=== PATIENT | male | born 1950 | race Caucasian/White ===

== ENCOUNTER 2016-04-18 11:51 | Observation (INO) | payer MEDICARE, OTHER ==
[~2016-04-18] VITALS: Ht 177.8 cm; Wt 80.2 kg
[2016-04-18 11:55] VITALS: BP 125/75; PULSE 65; RESP 16; TEMP 98.2; O2SAT 96
[2016-04-18] MEDS ORDERED: SODIUM CHLORIDE 0.9% FLUSH 5 ML FLUSH IVF PRN (12:00)
[2016-04-18] MEDS ORDERED: LORazepam 2 MG/ML VIAL IVP ONE (12:00)
[2016-04-18 12:01] VITALS: O2SAT 96
[2016-04-18] MEDS ORDERED: LISI-515 PO (12:02)
[2016-04-18 12:34] LABS: BASOPHIL % 0.3 % (0.0-2.0); EOSINOPHIL % 0.3 % (0.0-4.0); HEMATOCRIT 40.9 % (39.0-51.0); HEMO FLAGS DIFF FINAL; LYMPH % 10.7 % (9.0-44.0); LYMPHOCYTE # 0.8 TH/MM3 (1.0-4.8); MEAN CELL VOLUME 97.5 FL (80.0-100.0); MEAN CORPUSCULAR HEMOGLOBIN 33.4 PG (27.0-34.0); MEAN CORPUSCULAR HGB CONC 34.3 % (32.0-36.0); MONO % 4.9 % (0.0-8.0); NEUT % 83.8 % (16.0-70.0); PLATELET COUNT 170 TH/MM3 (150-450); RED BLOOD COUNT 4.19 MIL/MM3 (4.50-5.90); RED CELL DISTRIBUTION WIDTH 13.9 % (11.6-17.2); WHITE BLOOD COUNT 7.1 TH/MM3 (4.0-11.0)
--- NOTE | 2016-04-18 12:39 | PD ---
HPI Chief Complaint: Alcohol/Drug Intoxication Time Seen by Provider: 11:56 Travel History International Travel<30 days: No Contact w/Intl Traveler<30days: No Traveled to known affect area: No History of Present Illness HPI This is a 65-year-old gentleman with history of alcoholism, who presents today with complaints of concerns for DTs and possible seizures. The patient reports that he was clean for a year and 10 days ago he started drinking a fifth of vodka daily. The patient states that he has been alcohol free for 48 hours and now is very tremulous and feels as though he may be impending DTs. 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 He denies any seizures today and reports that he had been 30 years ago. There are no other complaints time of my examination. PFSH Past Medical History Cardiovascular Problems: Yes (HTN) Diminished Hearing: No Hypertension: Yes Seizures: Yes (ETOH INDUCED) Social History Alcohol Use: Yes (DAILY ) Tobacco Use: No Substance Use: No Allergies-Medications (Allergen,Severity, Reaction): Coded Allergies: No Known Allergies (Unverified , 04/18/16) Reported Meds & Prescriptions Reported Meds & Active Scripts Active Chlordiazepoxide (Chlordiazepoxide HCl) 25 Mg Cap 25 Mg PO TID PRN Reported Lisinopril 20 Mg Tab 20 Mg PO QID Review of Systems Except as stated in HPI: all other systems reviewed are Neg Eyes: Positive: Other (is reports seen bright lights with the tremors.), No: Pain HENT: No: Headaches, Lightheadedness Cardiovascular: No: Chest Pain or Discomfort, Palpitations Respiratory: No: Cough, Shortness of Breath Gastrointestinal: Positive: Nausea, Vomiting, No: Diarrhea, Abdominal Pain Genitourinary: No: Dysuria, Incontinence Musculoskeletal: No: Weakness, Pain Skin: Positive Other (multiple skin lesions secondary to prolonged sun abuse) Neurologic: Positive: Tremor, No: Change in Mentation, Incontinence, Seizures Physical Exam Narrative GENERAL: Well-developed well-nourished gentleman who appears to be tremulous SKIN: Warm and dry. She has multiple scaly skin lesions. These appear consistent with prolonged sun abuse. HEAD: Atraumatic. Normocephalic. EYES:No scleral icterus. No injection or drainage. ENT: No nasal bleeding or discharge. Mucous membranes pink and moist. NECK: Trachea midline. Supple CARDIOVASCULAR: Regular rate and rhythm. Rate in the 60s. No murmur appreciated. RESPIRATORY: No accessory muscle use. Clear to auscultation. Breath sounds equal bilaterally. GASTROINTESTINAL: Abdomen soft, non-tender, nondistended. No rebound or guarding. No fluid wave. MUSCULOSKELETAL: No obvious deformities. No clubbing. No cyanosis. No edema. NEUROLOGICAL: Awake and alert. No obvious cranial nerve deficits. Motor grossly within normal limits. Normal speech. Tremulous. Data Data Last Documented VS Vital Signs Date Time Temp Pulse Resp B/P Pulse Ox O2 Delivery O2 Flow Rate FiO2 04/18/16 15:18 68 26 174/68 95 Room Air 04/18/16 11:55 98.2 Orders Electrocardiogram (04/18/16 11:56) Complete Blood Count With Diff (04/18/16 11:56) Comprehensive Metabolic Panel (04/18/16 11:56) Chest, Single Ap (04/18/16 11:56) Iv Access Insert/Monitor (04/18/16 11:56) Ecg Monitoring (04/18/16 11:56) Oximetry (04/18/16 11:56) Lorazepam Inj (Ativan Inj) (04/18/16 12:00) Sodium Chloride 0.9% Flush (Ns Flush) (04/18/16 12:00) Drug Screen, Random Urine (04/18/16 11:56) Alcohol (Ethanol) (04/18/16 11:56) Thiamine (Vit B1) (Vitamin B1) (04/18/16 13:15) Folic Acid (Folate) (04/18/16 13:15) Multivitamin (Theragran) (04/18/16 13:15) Chlordiazepoxide (Librium) (04/18/16 15:00) Labs Laboratory Tests Test 04/18/16 12:05 White Blood Count 7.1 TH/MM3 Red Blood Count 4.19 MIL/MM3 Hemoglobin 14.0 GM/DL Hematocrit 40.9 % Mean Corpuscular Volume 97.5 FL Mean Corpuscular Hemoglobin 33.4 PG Mean Corpuscular Hemoglobin 34.3 % Concent Red Cell Distribution Width 13.9 % Platelet Count 170 TH/MM3 Mean Platelet Volume 7.7 FL Neutrophils (%) (Auto) 83.8 % Lymphocytes (%) (Auto) 10.7 % Monocytes (%) (Auto) 4.9 % Eosinophils (%) (Auto) 0.3 % Basophils (%) (Auto) 0.3 % Neutrophils # (Auto) 6.0 TH/MM3 Lymphocytes # (Auto) 0.8 TH/MM3 Monocytes # (Auto) 0.3 TH/MM3 Eosinophils # (Auto) 0.0 TH/MM3 Basophils # (Auto) 0.0 TH/MM3 CBC Comment DIFF FINAL Differential Comment Sodium Level 143 MEQ/L Potassium Level 3.9 MEQ/L Chloride Level 103 MEQ/L Carbon Dioxide Level 26.8 MEQ/L Anion Gap 13 MEQ/L Blood Urea Nitrogen 14 MG/DL Creatinine 1.03 MG/DL Estimat Glomerular Filtration 72 ML/MIN Rate Random Glucose 95 MG/DL Calcium Level 8.4 MG/DL Total Bilirubin 0.7 MG/DL Aspartate Amino Transf 83 U/L (AST/SGOT) Alanine Aminotransferase 51 U/L (ALT/SGPT) Alkaline Phosphatase 44 U/L Total Protein 7.4 GM/DL Albumin 4.2 GM/DL Ethyl Alcohol Level 42 MG/DL [facility] Medical Decision Making Medical Screen Exam Complete: Yes Emergency Medical Condition: Yes Differential Diagnosis Acute alcohol withdrawal versus DTs versus encephalopathy versus electrolyte abnormalities. Narrative Course 65-year-old gentleman who presents with early alcohol withdrawal symptoms. The patient has been on a 10 day alcohol binge. He's been drinking a fifth of vodka daily for 10 days. He states that he stop drinking 48 hours ago although his serum alcohol level is 0.042. He's been given 2 mg of Ativan and 25 mg of Librium. He is also been given a multivitamin, 1 mg of folate and 100 mg of thiamine. At this time he does not appear to be an acute withdrawals and I am comfortable with discharging him. The patient's will be given a prescription for Librium 25 mg 3 times daily 5 days. He is instructed this avoid alcohol. Case management has provided him with outpatient alcohol detox programs. He is instructed return of he develops any recurring symptoms. Diagnosis Primary Impression: Alcohol withdrawal syndrome Additional Instructions: Do not drink alcohol. Take Librium for withdrawal symptoms but please avoid alcohol. Follow up with outpatient alcohol detox program. Scripts Chlordiazepoxide 25 Mg Cap25 Mg PO TID PRN (Anxiety) #15 CAP Ref 0 Prov:Justino Pina MD 04/18/16 Disposition: 01 DISCHARGE HOME Condition: Stable Justino Pina MD Apr 18, 2016 12:39
[2016-04-18 12:53] LABS: ALT (GPT) 51 U/L (12-78); ANION GAP 13 MEQ/L (5-15); AST (GOT) 83 U/L (15-37); BICARBONATE 26.8 MEQ/L (21.0-32.0); BLOOD UREA NITROGEN 14 MG/DL (7-18); CHLORIDE 103 MEQ/L (98-107); GLOMERULAR FILTRATION RATE 72 ML/MIN (>89); POTASSIUM 3.9 MEQ/L (3.5-5.1); SODIUM (NA) 143 MEQ/L (136-145)
[2016-04-18 12:55] LABS: ALKALINE PHOSPHATASE 44 U/L (45-117); TOTAL BILIRUBIN ADULT 0.7 MG/DL (0.2-1.0)
[2016-04-18] MEDS ORDERED: FOLIC ACID 1 MG TAB PO ONE (13:15)
[2016-04-18] MEDS ORDERED: MULTIVITAMIN TAB PO ONE (13:15)
[2016-04-18] MEDS ORDERED: THIAMINE HCL 100 MG TAB PO ONE (13:15)
--- NOTE | 2016-04-18 13:26 | RADRPT ---
EXAM DATE/TIME: 04/18/2016 12:14 [place] COMPARISON: No previous studies available for comparison. INDICATIONS : Cough. MEDICAL HISTORY : None. SURGICAL HISTORY : None. ENCOUNTER: Initial ACUITY: 4 - 6 days PAIN SCORE: 3/10 LOCATION: Bilateral upper chest FINDINGS: A single view of the chest demonstrates the lungs to be symmetrically aerated without evidence of mas s, infiltrate or effusion. The cardiomediastinal contours are unremarkable. Osseous structures are intact. CONCLUSION: No evidence of acute cardiopulmonary disease. Sanchez Roy MD on April 18, 2016 at 13:24 Board Certified Radiologist. This report was verified electronically.
[2016-04-18 14:13] VITALS: BP 137/69; PULSE 68; RESP 16; O2SAT 95
[2016-04-18] MEDS ORDERED: chlordiazePOXIDE 25 MG CAP PO ONE (15:00)
[2016-04-18] MEDS ORDERED: CHLO25CA2 PO (15:07)
[2016-04-18 15:18] VITALS: BP 174/68; PULSE 68; RESP 26; O2SAT 95
[2016-04-18] MEDS ORDERED: LORazepam 2 MG TAB PO PRN (18:15)
[2016-04-18] MEDS ORDERED: LORazepam 2 MG/ML VIAL IV PUSH PRN ×4 (18:15)
[2016-04-18] MEDS ORDERED: LORazepam 1 MG TAB PO PRN (18:15)
[2016-04-18] MEDS ORDERED: FLUMAZENIL 0.5 MG/5 ML VIAL IV PUSH PRN (18:15)
[2016-04-18] MEDS ORDERED: chlordiazePOXIDE 25 MG CAP PO PRN (18:15)
[2016-04-18] MEDS ORDERED: THIAMINE INJ 100 MG in SODIUM CHLORIDE 0.9% INJ 100 ML IV ONE (18:15)
[2016-04-18 18:23] LABS: AMPHETAMINE, URINE NEG (NEG); BARBITURATES, URINE NEG (NEG); COCAINE, URINE NEG (NEG)
[2016-04-18 20:00] VITALS: BP 153/77; PULSE 69; RESP 19; TEMP 98.3; O2SAT 99
[2016-04-18] MEDS: chlordiazePOXIDE 25 MG CAP PO SCH (22:22)
--- NOTE | 2016-04-18 23:33 | HHI.HP ---
[facility] No Primary Care Physician Admission Diagnosis acute alcohol withdrawel syndrome. Diagnoses: Travel History International Travel<30 Days: No Contact w/Intl Traveler <30 Da: No Traveled to Known Affected Are: No History of Present Illness Patient seen this afternoon around 6 PM. 65-year-old male with a history of hypertension, chronic alcoholism, seizure many years ago after attempted alcohol cessation. Patient states he stopped drinking intentionally 2 days ago , began to experience progressively worsening tremors bilaterally, as well as hallucinations. He does not want to have a seizure.. He is given Librium in the ER, with improvement in tremors, however still with hallucinations, described as visual disturbances, seeing pictures that aren't there, however denies that they're floaters. He denies any headache, chest pain, shortness of breath, nausea, vomiting, fevers, chills Review of Systems performed and negative except for HPI and past medical history. Past Family Social History Past Medical History Seizure many years ago from alcohol withdrawal Chronic alcoholism. Patient drinks a fifth of vodka per day typically Hypertension on lisinopril 20 mg daily. Past Surgical History Right hip replacement Appendectomy Reported Medications lisinopril 20 mg daily. Multivitamin Allergies: Coded Allergies: No Known Allergies (Unverified , 04/18/16) Family History Mother with COPD. Father with lymphoma Social History Nonsmoker. Patient drinks a fifth of vodka per day. Denies any illicit drugs Physical Exam Vital Signs Vital Signs Date Time Temp Pulse Resp B/P Pulse Ox O2 Delivery O2 Flow Rate FiO2 04/18/16 20:00 98.3 69 19 153/77 99 04/18/16 15:18 68 26 174/68 95 Room Air 04/18/16 14:13 68 16 137/69 95 Room Air 04/18/16 12:01 96 Room Air 04/18/16 11:58 71 17 96 Room Air 04/18/16 11:55 98.2 65 16 125/75 96 Physical Exam GENERAL: This is a well-nourished, well-developed patient, in no apparent distress.he is alert and oriented 3. SKIN: No rashes, ecchymoses or lesions. Cool and dry. HEAD: Atraumatic. Normocephalic. No temporal or scalp tenderness. EYES: Pupils equal round and reactive. Extraocular motions intact. No scleral icterus. No injection or drainage. ENT: Nose without bleeding, purulent drainage or septal hematoma. Throat without erythema, tonsillar hypertrophy or exudate. Uvula midline. Airway patent. NECK: Trachea midline. No JVD or lymphadenopathy. Supple, nontender, no meningeal signs. CARDIOVASCULAR: Regular rate and rhythm without murmurs, gallops, or rubs. RESPIRATORY: Clear to auscultation. Breath sounds equal bilaterally. No wheezes , rales, or rhonchi. GASTROINTESTINAL: Abdomen soft, non-tender, nondistended. No hepato-splenomegaly , or palpable masses. No guarding. MUSCULOSKELETAL: Extremities without clubbing, cyanosis, or edema. No joint tenderness, effusion, or edema noted. No calf tenderness. Negative Homans sign bilaterally. NEUROLOGICAL: Awake and alert. Cranial nerves II through XII intact. patient does have bilateral upper and lower extremity ataxia with diminished proprioception. Speech is clear. Five out of 5 muscle strength in all muscle groups. Normal speech. Laboratory Laboratory Tests Test 04/18/16 04/18/16 12:05 17:43 White Blood Count 7.1 Red Blood Count 4.19 Hemoglobin 14.0 Hematocrit 40.9 Mean Corpuscular Volume 97.5 Mean Corpuscular Hemoglobin 33.4 Mean Corpuscular Hemoglobin 34.3 Concent Red Cell Distribution Width 13.9 Platelet Count 170 Mean Platelet Volume 7.7 Neutrophils (%) (Auto) 83.8 Lymphocytes (%) (Auto) 10.7 Monocytes (%) (Auto) 4.9 Eosinophils (%) (Auto) 0.3 Basophils (%) (Auto) 0.3 Neutrophils # (Auto) 6.0 Lymphocytes # (Auto) 0.8 Monocytes # (Auto) 0.3 Eosinophils # (Auto) 0.0 Basophils # (Auto) 0.0 CBC Comment DIFF FINAL Differential Comment Sodium Level 143 Potassium Level 3.9 Chloride Level 103 Carbon Dioxide Level 26.8 Anion Gap 13 Blood Urea Nitrogen 14 Creatinine 1.03 Estimat Glomerular Filtration 72 Rate Random Glucose 95 Calcium Level 8.4 Total Bilirubin 0.7 Aspartate Amino Transf 83 (AST/SGOT) Alanine Aminotransferase 51 (ALT/SGPT) Alkaline Phosphatase 44 Total Protein 7.4 Albumin 4.2 Vitamin B12 Level 225 Ethyl Alcohol Level 42 Urine Opiates Screen NEG Urine Barbiturates Screen NEG Urine Amphetamines Screen NEG Urine Benzodiazepines Screen NEG Urine Cocaine Screen NEG Urine Cannabinoids Screen POS Result Diagram: 04/18/16 1205 04/18/16 1205 Assessment and Plan Assessment and Plan //Acute alcohol withdrawal, with hallucinations. -We'll admit for treatment of alcohol withdrawal. -Scheduled Librium. As needed CIWA //Ataxia. -Possibly secondary to chronic alcoholism. IV thiamine 1. Daily vitamin by mouth. -B12 low. Methylmalonic acid pending. //Hypertension. Chronic. Blood pressure acceptable. Continue lisinopril. Expect to improve with benzodiazepine. Continue to monitor. //Prophylaxis. SCDs. Discussed Condition With patient, nurse, ED physician. Physician Certification 2 Midnight Certification Type: Admission for Inpatient Services Order for Inpatient Services The services are ordered in accordance with Medicare regulations or non- Medicare payer requirements, as applicable. In the case of services not specified as inpatient-only, they are appropriately provided as inpatient services in accordance with the 2-midnight benchmark. Estimated LOS (days): 2 days is the estimated time the patient will need to remain in the hospital, assuming treatment plan goals are met and no additional complications. Post-Hospital Plan: Home Shahab Henderson MD Apr 18, 2016 23:33
[2016-04-19 01:20] VITALS: BP 152/64; PULSE 62; RESP 18; TEMP 98.3; O2SAT 96
[2016-04-19 04:00] VITALS: BP 127/66; PULSE 64; RESP 18; TEMP 97; O2SAT 97
[2016-04-19 08:00] VITALS: BP 167/88; PULSE 68; RESP 18; TEMP 97.8; O2SAT 97
[2016-04-19] MEDS ORDERED: LISINOPRIL 20 MG TAB PO SCH (09:00)
[2016-04-19] MEDS ORDERED: THIAMINE HCL 100 MG TAB PO SCH (09:00)
[2016-04-19] MEDS ORDERED: CYANOCOBALAMIN 1000 MCG/ML VIAL IM SCH (09:30)
[2016-04-19] MEDS: chlordiazePOXIDE 25 MG CAP PO SCH (09:32)
--- NOTE | 2016-04-19 10:11 | EKG ---
Date Performed: 04/18/2016 Time Performed: 12:14:20 PTAGE: 65 years EKG: Sinus rhythm BORDERLINE LEFT AXIS DEVIATION BORDERLINE ECG NO PREVIOUS TRACING DOCTOR: Ezio Colin Interpretating Date/Time 04/19/2016 10:08:47
[2016-04-19] MEDS ORDERED: CHLO25CA2 PO (10:38)
[2016-04-19] MEDS ORDERED: CYAN100017 PO (10:38)
[2016-04-19] MEDS ORDERED: MULT1TAB84 PO (10:38)
--- NOTE | 2016-04-19 10:46 | HHI.DS ---
Discharge Summary Admission Date Apr 18, 2016 at 16:11 Discharge Date: Apr 19, 2016 Admitting Diagnosis acute alcohol withdrawel syndrome. 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 65-year-old male with a history of hypertension, chronic alcoholism, seizure many years ago after attempted alcohol cessation. Patient states he stopped drinking intentionally 2 days ago , began to experience progressively worsening tremors bilaterally, as well as hallucinations. He does not want to have a seizure.. He is given Librium in the ER, with improvement in tremors, however still with hallucinations, described as visual disturbances, seeing pictures that aren't there, however denies that they're floaters. He denies any headache, chest pain, shortness of breath, nausea, vomiting, fevers, chills CBC/BMP: 04/18/16 1205 04/18/16 1205 Significant Findings Laboratory Tests Test 04/18/16 04/18/16 12:05 17:43 Red Blood Count 4.19 MIL/MM3 (4.50-5.90) Neutrophils (%) (Auto) 83.8 % (16.0-70.0) Lymphocytes # (Auto) 0.8 TH/MM3 (1.0-4.8) Estimat Glomerular Filtration 72 ML/MIN (>89) Rate Calcium Level 8.4 MG/DL (8.5-10.1) Aspartate Amino Transf 83 U/L (15-37) (AST/SGOT) Alkaline Phosphatase 44 U/L (45-117) Ethyl Alcohol Level 42 MG/DL (0-5) Urine Cannabinoids Screen POS (NEG) Imaging Last Impressions Chest X-Ray 04/18/16 1156 Signed Impressions: Service Date/Time: Monday, April 18, 2016 12:14 - CONCLUSION: No evidence of acute cardiopulmonary disease. Sanchez Roy MD PE at Discharge GENERAL: walking in room, dressed. appears comfortable. aaox4. SKIN: Warm and dry. HEAD: Normocephalic. EYES: No scleral icterus. No injection or drainage. NECK: Supple, trachea midline. No JVD. CARDIOVASCULAR: Regular rate and rhythm without murmurs, gallops, or rubs. RESPIRATORY: Breath sounds equal bilaterally. No accessory muscle use. GASTROINTESTINAL: Abdomen soft, non-tender, nondistended. MUSCULOSKELETAL: No cyanosis, or edema. BACK: Nontender without obvious deformity. No CVA tenderness. Hospital Course b12 level checked and 200s borderline, MMA pending. B12, thiamine given. ataxia much improved, hallucinations resolved the morning after admission. 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 will continue b12 PO, thiamine PO. //Acute alcohol withdrawal, with hallucinations. -We'll admit for treatment of alcohol withdrawal. -04/19 hallucinations resolved. -Scheduled Librium as outpatient. //Ataxia. -Possibly secondary to chronic alcoholism. IV thiamine 1. Daily vitamin by mouth. -B12 low. Methylmalonic acid pending. dw patient. he will f/u PCP for these results -rpt B12 level in 3 mos. 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 //Hypertension. Chronic. Blood pressure acceptable. Continue lisinopril. Expect to improve with benzodiazepine. Continue lisinopril. //Prophylaxis. SCDs. Pt Condition on Discharge: Good Discharge Disposition: Discharge Home Discharge Time: <= 30 minutes Discharge Instructions DIET: Follow Instructions for: Heart Healthy Diet Activities you can perform: Regular-No Restrictions Follow up Referrals: PCP Follow-up - 1 Week with Anna Ralph MD New Medications: Cyanocobalamin (B-12) 1,000 Mcg Cap 1000 MCG PO DAILY Nutritional Supplement #1 Ref 0 BOTTLE Multiple Vitamins W/ Minerals (Multivitamin Adults) 1 Tab 1 TAB PO DAILY Nutritional Supplement Days 30 Ref 0 TAB Changed Medications: Chlordiazepoxide (Chlordiazepoxide) 25 Mg Cap 25 MG PO TID Take THREE Times daily for 3 Days, then TWICE daily for 3 days, then ONCE a day for 3 Days. PRN Alcohol detox #18 Ref 0 CAP (Changed from: 15) Continued Medications: Lisinopril (Lisinopril) 20 Mg Tab 20 MG PO DAILY #30 Ref 0 TAB Shahab Henderson MD Apr 19, 2016 10:46
[2016-04-19] MEDS ORDERED: THIA100T PO (10:50)
== END 2016-04-19 13:31 | disposition home or self-care (01) ==
LOC: NEPC 11:51 → NEDA 16:11 → HOCB 18:27
PROVIDERS: ADMIT Internal Medicine; ATTEND Internal Medicine
DX: F10.239 Alcohol dependence with withdrawal, unspecified (principal); G31.2 Degeneration of nervous system due to alcohol; E53.8 Deficiency of other specified B group vitamins; I10 Essential (primary) hypertension; R27.0 Ataxia, unspecified; Z96.641 Presence of right artificial hip joint
CPT/HCPCS: 71010; 80053; 80307; 82607; 83921; 85025; 93005; 96374; 99285; G0378; J2060; J3411; J3420

== ENCOUNTER 2016-05-05 05:31 | Emergency (ER) | payer MEDICARE, OTHER ==
[~2016-05-05] VITALS: Ht 175.3 cm; Wt 80.0 kg
[~2016-05-05 05:31] MED LIST: CHLO25CA2 PO; CYAN100017 PO; LISI-515 PO; MULT1TAB84 PO; THIA100T PO
[2016-05-05 05:33] VITALS: BP 157/84; PULSE 101; RESP 20; TEMP 98.8; O2SAT 94
--- NOTE | 2016-05-05 05:40 | PD ---
HPI Chief Complaint: Alcohol/Drug Intoxication Time Seen by Provider: 05:33 Travel History International Travel<30 days: No Contact w/Intl Traveler<30days: No Traveled to known affect area: No History of Present Illness HPI 65 years old male complains of alcohol withdrawal symptoms. Patient has history alcohol abuse. Patient stated he tried to quit drinking 25 hours ago. Patient started having bad extremity shaking this morning and had a small amount of alcohol this morning. Patient states that he still having a lot of shaking this morning. Patient denies any headache. Patient denies any chest pain or shortness of breath. Patient denies abdominal pain. Patient denies any focal weakness or numbness of extremity. Patient denies any illicit drug abuse. Patient states that he has history of seizure in the past when he started to stop drinking. PFSH Past Medical History Cardiovascular Problems: Yes (HTN) Diminished Hearing: No Hypertension: Yes Psychiatric: No Seizures: Yes (ETOH INDUCED) Social History Alcohol Use: Yes (DAILY ) Tobacco Use: No Substance Use: No Allergies-Medications (Allergen,Severity, Reaction): Coded Allergies: No Known Allergies (Unverified , 04/18/16) Reported Meds & Prescriptions Reported Meds & Active Scripts Active Reported Lisinopril 20 Mg Tab 20 Mg PO DAILY Review of Systems General / Constitutional: No: Fever Eyes: No: Visual changes HENT: No: Headaches Cardiovascular: No: Chest Pain or Discomfort Respiratory: No: Shortness of Breath Gastrointestinal: No: Abdominal Pain Genitourinary: No: Dysuria Musculoskeletal: No: Pain Skin: No Rash Neurologic: No: Weakness Psychiatric: No: Depression Endocrine: No: Polydipsia Hematologic/Lymphatic: No: Easy Bruising Physical Exam Narrative GENERAL: Well-nourished, well-developed patient. SKIN: Warm and dry. HEAD: Normocephalic. EYES: No scleral icterus. No injection or drainage. NECK: Supple, trachea midline. No JVD or lymphadenopathy. CARDIOVASCULAR: Regular rate and rhythm without murmurs, gallops, or rubs. RESPIRATORY: Breath sounds equal bilaterally. No accessory muscle use. GASTROINTESTINAL: Abdomen soft, non-tender, nondistended. MUSCULOSKELETAL: No cyanosis, or edema. Mild tremulousness of extremity. BACK: Nontender without obvious deformity. No CVA tenderness. Neurologic exam: Patient is awake and alert oriented 3. No obvious focal neurological deficit. Data Data Last Documented VS Vital Signs Date Time Temp Pulse Resp B/P Pulse Ox O2 Delivery O2 Flow Rate FiO2 05/05/16 05:33 98.8 101 20 157/84 94 Orders Complete Blood Count With Diff (05/05/16 05:34) Comprehensive Metabolic Panel (05/05/16 05:34) Iv Access Insert/Monitor (05/05/16 05:34) Ecg Monitoring (05/05/16 05:34) Oximetry (05/05/16 05:34) Alcohol (Ethanol) (05/05/16 05:34) Sodium Chlor 0.9% 1000 Ml Inj (Ns 1000 M (05/05/16 05:45) Thiamine Inj (Thiamine Inj) (05/05/16 05:45) Lorazepam Inj (Ativan Inj) (05/05/16 05:45) Chlordiazepoxide (Librium) (05/05/16 05:45) Labs Laboratory Tests Test 05/05/16 05:40 White Blood Count 4.9 TH/MM3 Red Blood Count 4.22 MIL/MM3 Hemoglobin 14.3 GM/DL Hematocrit 41.1 % Mean Corpuscular Volume 97.5 FL Mean Corpuscular Hemoglobin 33.9 PG Mean Corpuscular Hemoglobin 34.8 % Concent Red Cell Distribution Width 15.0 % Platelet Count 156 TH/MM3 Mean Platelet Volume 7.5 FL Neutrophils (%) (Auto) 49.5 % Lymphocytes (%) (Auto) 39.7 % Monocytes (%) (Auto) 8.5 % Eosinophils (%) (Auto) 1.4 % Basophils (%) (Auto) 0.9 % Neutrophils # (Auto) 2.4 TH/MM3 Lymphocytes # (Auto) 1.9 TH/MM3 Monocytes # (Auto) 0.4 TH/MM3 Eosinophils # (Auto) 0.1 TH/MM3 Basophils # (Auto) 0.0 TH/MM3 CBC Comment DIFF FINAL Differential Comment Sodium Level 138 MEQ/L Potassium Level 3.9 MEQ/L Chloride Level 100 MEQ/L Carbon Dioxide Level 25.2 MEQ/L Anion Gap 13 MEQ/L Blood Urea Nitrogen 22 MG/DL Creatinine 1.23 MG/DL Estimat Glomerular Filtration 59 ML/MIN Rate Random Glucose 96 MG/DL Calcium Level 8.1 MG/DL Total Bilirubin 0.9 MG/DL Aspartate Amino Transf 112 U/L (AST/SGOT) Alanine Aminotransferase 66 U/L (ALT/SGPT) Alkaline Phosphatase 45 U/L Total Protein 7.4 GM/DL Albumin 4.2 GM/DL Ethyl Alcohol Level 299 MG/DL MDM Medical Decision Making Medical Screen Exam Complete: Yes Emergency Medical Condition: Yes Interpretation(s) 6:51 AM. CBC within normal limit. CMP within normal limit. BUN 22. Alcohol 299. Differential Diagnosis Differential diagnosis including alcohol withdrawal symptom, impending DT, electrolyte imbalance, dehydration. Narrative Course 65 years old male with extremity shaking and alcohol withdrawal symptoms. Normal saline solution 1 25 cc an hour. Thiamine 100 mg IV. Ativan 1 mg IV. Librium 25 mg by mouth. Diagnosis Primary Impression: Alcohol withdrawal syndrome Qualified Code: F10.230 - Alcohol withdrawal syndrome, uncomplicated Florin Silva MD May 05, 2016 05:40
[2016-05-05] MEDS ORDERED: LORazepam 2 MG/ML VIAL IV PUSH ONE (05:45)
[2016-05-05] MEDS ORDERED: chlordiazePOXIDE 25 MG CAP PO ONE (05:45)
[2016-05-05] MEDS ORDERED: THIAMINE INJ 100 MG in SODIUM CHLORIDE 0.9% INJ 100 ML IV ONE (05:45)
[2016-05-05] MEDS ORDERED: SODIUM CHLOR 0.9% 1000 ML INJ 1,000 ML IV SCH (05:45)
[2016-05-05 05:57] LABS: AUTOMATED NEUTROPHIL # 2.4 TH/MM3 (1.8-7.7); BASOPHIL % 0.9 % (0.0-2.0); EOSINOPHIL # 0.1 TH/MM3 (0-0.4); EOSINOPHIL % 1.4 % (0.0-4.0); HEMATOCRIT 41.1 % (39.0-51.0); HEMO FLAGS DIFF FINAL; LYMPH % 39.7 % (9.0-44.0); LYMPHOCYTE # 1.9 TH/MM3 (1.0-4.8); MEAN CELL VOLUME 97.5 FL (80.0-100.0); MEAN CORPUSCULAR HEMOGLOBIN 33.9 PG (27.0-34.0); MEAN CORPUSCULAR HGB CONC 34.8 % (32.0-36.0); MONO % 8.5 % (0.0-8.0); NEUT % 49.5 % (16.0-70.0); PLATELET COUNT 156 TH/MM3 (150-450); RED BLOOD COUNT 4.22 MIL/MM3 (4.50-5.90); WHITE BLOOD COUNT 4.9 TH/MM3 (4.0-11.0)
[2016-05-05 06:26] LABS: ALKALINE PHOSPHATASE 45 U/L (45-117); TOTAL BILIRUBIN ADULT 0.9 MG/DL (0.2-1.0)
[2016-05-05 06:33] LABS: ALT (GPT) 66 U/L (12-78); ANION GAP 13 MEQ/L (5-15); AST (GOT) 112 U/L (15-37); BICARBONATE 25.2 MEQ/L (21.0-32.0); BLOOD UREA NITROGEN 22 MG/DL (7-18); CHLORIDE 100 MEQ/L (98-107); GLOMERULAR FILTRATION RATE 59 ML/MIN (>89); SODIUM (NA) 138 MEQ/L (136-145)
[2016-05-05 06:34] LABS: POTASSIUM 3.9 MEQ/L (3.5-5.1)
[2016-05-05 07:00] VITALS: BP 157/76; PULSE 77; RESP 14; O2SAT 96
[2016-05-05 08:05] VITALS: BP 148/66; PULSE 80; RESP 14; O2SAT 95
== END 2016-05-05 08:37 | disposition home or self-care (01) ==
LOC: NEPE 05:31
DX: F10.230 Alcohol dependence with withdrawal, uncomplicated (principal); I10 Essential (primary) hypertension; Z86.79 Personal history of other diseases of the circulatory system; Z86.69 Personal history of other diseases of the nervous system and sense organs
CPT/HCPCS: 80053; 80307; 85025; 96361; 96365; 96366; 96375; 99284; J2060; J3411; J7030

== ENCOUNTER 2016-05-05 17:05 | Emergency (ER) | payer MEDICARE, OTHER ==
[2016-05-05 17:08] VITALS: BP 140/73; PULSE 88; RESP 20; TEMP 97.4; O2SAT 94
[2016-05-05 19:07] VITALS: BP 153/76; PULSE 82; RESP 19; O2SAT 96
[2016-05-05] MEDS ORDERED: SODIUM CHLOR 0.9% 1000 ML INJ 1,000 ML IV SCH (19:26)
[2016-05-05] MEDS ORDERED: FOLIC ACID 1 MG TAB PO ONE (19:30)
[2016-05-05] MEDS ORDERED: DIAZEPAM 10 MG TAB PO ONE (19:30)
[2016-05-05] MEDS ORDERED: THIAMINE INJ 100 MG in SODIUM CHLORIDE 0.9% INJ 100 ML IV ONE (19:30)
[2016-05-05] MEDS ORDERED: SODIUM CHLORIDE 0.9% FLUSH 10 ML FLUSH IV FLUSH PRN (19:30)
[2016-05-05 19:52] VITALS: O2SAT 95
[2016-05-05 20:04] LABS: EOSINOPHIL % 0.8 % (0.0-4.0); HEMATOCRIT 42.3 % (39.0-51.0); HEMO FLAGS DIFF FINAL; LYMPH % 27.7 % (9.0-44.0); LYMPHOCYTE # 1.3 TH/MM3 (1.0-4.8); MEAN CELL VOLUME 98.1 FL (80.0-100.0); MEAN CORPUSCULAR HEMOGLOBIN 33.1 PG (27.0-34.0); MEAN CORPUSCULAR HGB CONC 33.7 % (32.0-36.0); MONO % 6.2 % (0.0-8.0); NEUT % 64.3 % (16.0-70.0); PLATELET COUNT 136 TH/MM3 (150-450); RED BLOOD COUNT 4.31 MIL/MM3 (4.50-5.90); RED CELL DISTRIBUTION WIDTH 14.6 % (11.6-17.2); WHITE BLOOD COUNT 4.7 TH/MM3 (4.0-11.0)
[2016-05-05 20:26] LABS: ANION GAP 15 MEQ/L (5-15); AST (GOT) 133 U/L (15-37); BICARBONATE 27.3 MEQ/L (21.0-32.0); BLOOD UREA NITROGEN 18 MG/DL (7-18); CHLORIDE 98 MEQ/L (98-107); GLOMERULAR FILTRATION RATE 66 ML/MIN (>89); POTASSIUM 4.2 MEQ/L (3.5-5.1); SODIUM (NA) 140 MEQ/L (136-145)
[2016-05-05 20:30] LABS: ALKALINE PHOSPHATASE 46 U/L (45-117); ALT (GPT) 72 U/L (12-78); TOTAL BILIRUBIN ADULT 1.2 MG/DL (0.2-1.0)
--- NOTE | 2016-05-05 21:52 | PD ---
HPI Chief Complaint: Alcohol/Drug Intoxication Time Seen by Provider: 19:25 Travel History International Travel<30 days: No Contact w/Intl Traveler<30days: No Traveled to known affect area: No History of Present Illness HPI 65-year-old male arrives to the ER complaining of tremors. He states "I've been drinking a bottle a day as long as I can remember. I started to get that she shakes." He does report a history of alcohol withdrawal seizure however has had none today. He has no history of DTs. He states his last drink was at 10 AM this morning, about 10 hours prior to ER evaluation. He reported to the nurse at his last drink was at 4 PM. Patient states he stopped drinking because he ran out of alcohol. PFSH Past Medical History Cardiovascular Problems: Yes (HTN) Diminished Hearing: No Hypertension: Yes Psychiatric: No Seizures: Yes (ETOH INDUCED) ?: Not Social History Alcohol Use: Yes (DAILY- last drink 1600 today vodka) Tobacco Use: No Substance Use: No Allergies-Medications (Allergen,Severity, Reaction): Coded Allergies: No Known Allergies (Unverified , 04/18/16) Reported Meds & Prescriptions Reported Meds & Active Scripts Active Reported Lisinopril 20 Mg Tab 20 Mg PO DAILY Review of Systems Except as stated in HPI: all other systems reviewed are Neg General / Constitutional: No: Fever, Chills Neurologic: Positive: Tremor Physical Exam Narrative GENERAL: 65-year-old male well-nourished well-developed no acute distress SKIN: Warm and dry. HEAD: Atraumatic. Normocephalic. EYES: Pupils equal and round. No scleral icterus. No injection or drainage. ENT: No nasal bleeding or discharge. Mucous membranes pink and moist. NECK: Trachea midline. No JVD. CARDIOVASCULAR: No tachycardia. Regular rhythm. RESPIRATORY: No accessory muscle use. Clear to auscultation. Breath sounds equal bilaterally. GASTROINTESTINAL: Abdomen soft, non-tender, nondistended. Hepatic and splenic margins not palpable. MUSCULOSKELETAL: No obvious deformities. No clubbing. No cyanosis. No edema. NEUROLOGICAL: Awake and alert. No obvious cranial nerve deficits. Motor grossly within normal limits. Normal speech. Occasional tremor. PSYCHIATRIC: No suicidal or homicidal ideation. Reasonably cooperative. Data Data Last Documented VS Vital Signs Date Time Temp Pulse Resp B/P Pulse Ox O2 Delivery O2 Flow Rate FiO2 05/05/16 23:18 92 16 152/68 96 05/05/16 19:52 Room Air 05/05/16 17:08 97.4 Vital signs reviewed Orders Complete Blood Count With Diff (05/05/16 19:26) Comprehensive Metabolic Panel (05/05/16 19:26) Iv Access Insert/Monitor (05/05/16 19:26) Ecg Monitoring (05/05/16 19:26) Oximetry (05/05/16 19:26) Sodium Chlor 0.9% 1000 Ml Inj (Ns 1000 M (05/05/16 19:26) Sodium Chloride 0.9% Flush (Ns Flush) (05/05/16 19:30) Thiamine Inj (Thiamine Inj) (05/05/16 19:30) Alcohol (Ethanol) (05/05/16 19:26) Diazepam (Valium) (05/05/16 19:30) Folic Acid (Folate) (05/05/16 19:30) Lorazepam Inj (Ativan Inj) (05/05/16 22:30) Labs Laboratory Tests Test 05/05/16 19:45 White Blood Count 4.7 TH/MM3 Red Blood Count 4.31 MIL/MM3 Hemoglobin 14.3 GM/DL Hematocrit 42.3 % Mean Corpuscular Volume 98.1 FL Mean Corpuscular Hemoglobin 33.1 PG Mean Corpuscular Hemoglobin 33.7 % Concent Red Cell Distribution Width 14.6 % Platelet Count 136 TH/MM3 Mean Platelet Volume 7.5 FL Neutrophils (%) (Auto) 64.3 % Lymphocytes (%) (Auto) 27.7 % Monocytes (%) (Auto) 6.2 % Eosinophils (%) (Auto) 0.8 % Basophils (%) (Auto) 1.0 % Neutrophils # (Auto) 3.0 TH/MM3 Lymphocytes # (Auto) 1.3 TH/MM3 Monocytes # (Auto) 0.3 TH/MM3 Eosinophils # (Auto) 0.0 TH/MM3 Basophils # (Auto) 0.0 TH/MM3 CBC Comment DIFF FINAL Differential Comment Sodium Level 140 MEQ/L Potassium Level 4.2 MEQ/L Chloride Level 98 MEQ/L Carbon Dioxide Level 27.3 MEQ/L Anion Gap 15 MEQ/L Blood Urea Nitrogen 18 MG/DL Creatinine 1.11 MG/DL Estimat Glomerular Filtration 66 ML/MIN Rate Random Glucose 86 MG/DL Calcium Level 8.4 MG/DL Total Bilirubin 1.2 MG/DL Aspartate Amino Transf 133 U/L (AST/SGOT) Alanine Aminotransferase 72 U/L (ALT/SGPT) Alkaline Phosphatase 46 U/L Total Protein 7.7 GM/DL Albumin 4.6 GM/DL Ethyl Alcohol Level 292 MG/DL [facility] Medical Decision Making Medical Screen Exam Complete: Yes Emergency Medical Condition: Yes Medical Record Reviewed: Yes Differential Diagnosis Alcohol intoxication, alcohol withdrawal syndrome, delirium tremens, anxiety, electrolyte imbalance Narrative Course CBC & BMP Diagram 05/05/16 19:45 LFTs are essentially normal Alcohol level is 292 During my examination and occasional mild tremor was observed. He has had no tachycardia. Presentation now is not consistent with alcohol withdrawal syndrome. The patient has received IV fluids thiamine folate and Valium. Reassessment at approximately 10:15 to 10:30 the patient found resting comfortably in bed. He intends to check into [facility] for alcohol rehabilitation/detox. He is agreeable to plan for discharge home. We'll provide a dose of Ativan after a discussion and conclusion made with shared decision making. Diagnosis Primary Impression: Alcoholism Additional Impression: Tremor [facility] Additional Instructions: You have a choice when it comes to health care, and we are glad that you chose [facility]. Hopefully, we have met your expectations on today's visit. You are welcome to return to [facility] at any time, as we are committed to meeting the health care needs of our community. Med/Other Pt SpecificInfo: No Change to Meds Disposition: 01 DISCHARGE HOME Condition: Stable Marco Chow MD May 05, 2016 21:52
[2016-05-05] MEDS ORDERED: LORazepam 2 MG/ML VIAL IV PUSH ONE (22:30)
[2016-05-05 23:18] VITALS: BP 152/68
== END 2016-05-05 23:28 | disposition home or self-care (01) ==
LOC: NEPE 17:05
DX: F10.20 Alcohol dependence, uncomplicated (principal); R25.1 Tremor, unspecified; I10 Essential (primary) hypertension; Z86.79 Personal history of other diseases of the circulatory system; Z86.69 Personal history of other diseases of the nervous system and sense organs
CPT/HCPCS: 80053; 85025; 96361; 96365; 96366; 96375; 99284; J2060; J3411; J7030; 80307

== ENCOUNTER 2016-08-24 08:40 | Emergency (ER) | payer MEDICARE, OTHER ==
[~2016-08-24] VITALS: Ht 175.3 cm; Wt 79.5 kg
[~2016-08-24 08:40] MED LIST changes: -CHLO25CA2 PO; -CYAN100017 PO; -MULT1TAB84 PO; -THIA100T PO
[2016-08-24 08:42] VITALS: BP 136/71; PULSE 63; RESP 18; TEMP 98.9; O2SAT 98
--- NOTE | 2016-08-24 09:03 | PD ---
HPI Chief Complaint: Bite or Sting Time Seen by Provider: 08:56 Travel History International Travel<30 days: No Contact w/Intl Traveler<30days: No Traveled to known affect area: No History of Present Illness HPI 65-year-old male patient presents to the ER today for a 10 day history of left thigh erythematous rash that keeps enlarging. He states that he thinks he got bitten by a spider something on the bus but did not see the actual bug. He states that the area has been calm more red and swollen and redness has increased in size until is encompassing half his left thigh. He has been having fevers and chills, body aches, and is worried that he can have Lyme disease. He denies any obvious exposure to ticks and did not see a tick when he got bitten. Modifying Factors: None Associated Signs & Symptoms: Left thigh rash, redness, fevers and chills Risk Factors: None PFSH Past Medical History Cardiovascular Problems: Yes (HTN) Diminished Hearing: No Hypertension: Yes Psychiatric: No Seizures: Yes (ETOH INDUCED) Social History Alcohol Use: Yes (DAILY- last drink 1600 today vodka) Tobacco Use: No Substance Use: No Allergies-Medications (Allergen,Severity, Reaction): Coded Allergies: No Known Allergies (Unverified , 08/24/16) Reported Meds & Prescriptions Reported Meds & Active Scripts Active Reported Lisinopril 20 Mg Tab 20 Mg PO DAILY Review of Systems Except as stated in HPI: all other systems reviewed are Neg Physical Exam Narrative GENERAL: Well-developed elderly white male patient currently not in acute distress. Awake and oriented 3. SKIN: Focused skin assessment warm/dry. There is a circular area of erythema on the left lateral thigh that measures 20 cm in circumference. Nontender to palpation and no underlying fluctuance. HEAD: Atraumatic. Normocephalic. EYES: Pupils equal and round. No scleral icterus. No injection or drainage. ENT: No nasal bleeding or discharge. Mucous membranes pink and moist. NECK: Trachea midline. No JVD. Supple. CARDIOVASCULAR: Regular rate and rhythm. No murmur appreciated. RESPIRATORY: No accessory muscle use. Clear to auscultation. Breath sounds equal bilaterally. GASTROINTESTINAL: Abdomen soft, non-tender, nondistended. Hepatic and splenic margins not palpable. MUSCULOSKELETAL: No obvious deformities. No clubbing. No cyanosis. No edema. NEUROLOGICAL: Awake and alert. No obvious cranial nerve deficits. Motor grossly within normal limits. Normal speech. PSYCHIATRIC: Appropriate mood and affect; insight and judgment normal. Data Data Last Documented VS Vital Signs Date Time Temp Pulse Resp B/P Pulse Ox O2 Delivery O2 Flow Rate FiO2 08/24/16 09:10 97 Room Air 08/24/16 08:42 98.9 63 18 136/71 Orders Complete Blood Count With Diff (08/24/16 08:56) Comprehensive Metabolic Panel (08/24/16 08:56) Lactic Acid Sepsis Protocol (08/24/16 08:56) Blood Culture (08/24/16 08:56) Blood Glucose (08/24/16 08:56) Ecg Monitoring (08/24/16 08:56) Iv Access Insert/Monitor (08/24/16 08:56) Oximetry (08/24/16 08:56) Oxygen Administration (08/24/16 08:56) B.Burgdorferi Igg&Igm Ab Lymes (08/24/16 08:59) Labs Laboratory Tests Test 08/24/16 09:00 White Blood Count 9.3 TH/MM3 Red Blood Count 4.08 MIL/MM3 Hemoglobin 13.0 GM/DL Hematocrit 38.9 % Mean Corpuscular Volume 95.2 FL Mean Corpuscular Hemoglobin 31.8 PG Mean Corpuscular Hemoglobin 33.4 % Concent Red Cell Distribution Width 13.2 % Platelet Count 244 TH/MM3 Mean Platelet Volume 7.9 FL Neutrophils (%) (Auto) 72.4 % Lymphocytes (%) (Auto) 18.2 % Monocytes (%) (Auto) 7.7 % Eosinophils (%) (Auto) 1.3 % Basophils (%) (Auto) 0.4 % Neutrophils # (Auto) 6.7 TH/MM3 Lymphocytes # (Auto) 1.7 TH/MM3 Monocytes # (Auto) 0.7 TH/MM3 Eosinophils # (Auto) 0.1 TH/MM3 Basophils # (Auto) 0.0 TH/MM3 CBC Comment DIFF FINAL Differential Comment Sodium Level 138 MEQ/L Potassium Level 4.3 MEQ/L Chloride Level 103 MEQ/L Carbon Dioxide Level 27.0 MEQ/L Anion Gap 8 MEQ/L Blood Urea Nitrogen 10 MG/DL Creatinine 0.97 MG/DL Estimat Glomerular Filtration 77 ML/MIN Rate Random Glucose 89 MG/DL Lactic Acid Level 1.0 mmol/L Calcium Level 9.0 MG/DL Total Bilirubin 0.8 MG/DL Aspartate Amino Transf 26 U/L (AST/SGOT) Alanine Aminotransferase 30 U/L (ALT/SGPT) Alkaline Phosphatase 40 U/L Total Protein 7.0 GM/DL Albumin 3.4 GM/DL MDM Medical Decision Making Medical Screen Exam Complete: Yes Emergency Medical Condition: Yes Medical Record Reviewed: Yes Interpretation(s) Laboratory Tests Test 08/24/16 09:00 Red Blood Count 4.08 MIL/MM3 (4.50-5.90) Hematocrit 38.9 % (39.0-51.0) Neutrophils (%) (Auto) 72.4 % (16.0-70.0) Estimat Glomerular Filtration 77 ML/MIN (>89) Rate Alkaline Phosphatase 40 U/L (45-117) Differential Diagnosis Left thigh cellulitis versus erythema migrans Narrative Course Patient is currently afebrile and lab work otherwise is unremarkable for any significant signs of sepsis. The rash is concerning for erythema migrans. Lyme antibiotics was sent on the patient. My plan would be to treat him with doxycycline and have him follow-up with primary care physician. Return for any worsening in rash appearance, fevers, or new symptoms as needed. The plan has been discussed with him and he states understanding. Diagnosis Primary Impression: Cellulitis, leg Med/Other Pt SpecificInfo: Prescription(s) given Scripts Doxycycline Hyclate (Vibramycin)100 Mg [id number] Mg PO BID 21 Days Ref 0 Prov:Ron Mcintyre MD 08/24/16 Disposition: 01 DISCHARGE HOME Condition: Stable Ron Mcintyre MD Aug 24, 2016 09:03
[2016-08-24 09:22] LABS: AUTOMATED NEUTROPHIL # 6.7 TH/MM3 (1.8-7.7); BASOPHIL % 0.4 % (0.0-2.0); EOSINOPHIL # 0.1 TH/MM3 (0-0.4); EOSINOPHIL % 1.3 % (0.0-4.0); HEMATOCRIT 38.9 % (39.0-51.0); LYMPH % 18.2 % (9.0-44.0); LYMPHOCYTE # 1.7 TH/MM3 (1.0-4.8); MEAN CELL VOLUME 95.2 FL (80.0-100.0); MEAN CORPUSCULAR HEMOGLOBIN 31.8 PG (27.0-34.0); MEAN CORPUSCULAR HGB CONC 33.4 % (32.0-36.0); MONO % 7.7 % (0.0-8.0); NEUT % 72.4 % (16.0-70.0); PLATELET COUNT 244 TH/MM3 (150-450); RED BLOOD COUNT 4.08 MIL/MM3 (4.50-5.90); RED CELL DISTRIBUTION WIDTH 13.2 % (11.6-17.2); WHITE BLOOD COUNT 9.3 TH/MM3 (4.0-11.0)
[2016-08-24 09:27] LABS: HEMO FLAGS DIFF FINAL
[2016-08-24 09:46] LABS: ANION GAP 8 MEQ/L (5-15); AST (GOT) 26 U/L (15-37); BLOOD UREA NITROGEN 10 MG/DL (7-18); CHLORIDE 103 MEQ/L (98-107); GLOMERULAR FILTRATION RATE 77 ML/MIN (>89); POTASSIUM 4.3 MEQ/L (3.5-5.1); SODIUM (NA) 138 MEQ/L (136-145)
[2016-08-24 09:47] LABS: ALT (GPT) 30 U/L (12-78)
[2016-08-24 09:49] LABS: ALKALINE PHOSPHATASE 40 U/L (45-117); TOTAL BILIRUBIN ADULT 0.8 MG/DL (0.2-1.0)
[2016-08-24] MEDS ORDERED: VIBR100C PO (09:57)
== END 2016-08-24 10:19 | disposition home or self-care (01) ==
LOC: NEPE 08:40
DX: L03.116 Cellulitis of left lower limb (principal); R50.9 Fever, unspecified; M79.1 Myalgia; I10 Essential (primary) hypertension; Z86.79 Personal history of other diseases of the circulatory system; Z86.69 Personal history of other diseases of the nervous system and sense organs
CPT/HCPCS: 80053; 83605; 85025; 87040; 99283